=== PATIENT | female | born 1995 | race Caucasian/White ===

== ENCOUNTER 2024-12-28 20:48 | Emergency (ER) | payer OTHER, SELFPAY ==
[2024-12-28 20:51] VITALS: BMI 23.5
[2024-12-28 21:12] VITALS: BP 129/82; PULSE 77; RESP 20; TEMP 36.8; O2SAT 100
--- NOTE | 2024-12-28 21:18 | EDNOTE_ITS ---
Neuro Symptoms Deficit-RME/HPI General Chief Complaint: Eye Problems Stated Complaint: LEFT ARM AND FACE NUMB AND LEFT EYE BLURRY Time Seen by Provider: 12/28/24 21:23 Arrival date/time: 12/28/24 20:48 RME / HPI RME / HPI Narrative: See MDM for Dr. Lugo's HPI Documentation. Related Data Previous Rx's ?Medication ?Instructions ?Recorded ondansetron 4 mg disintegrating 4 mg PO TID PRN nausea and 12/28/24 tablet vomiting 30 days #10 tabs sumatriptan succinate 25 mg tablet 25 mg PO Q2H PRN mi graine headache 12/28/24 (Imitrex) #10 tabs Allergies Allergy/AdvReac Type Severity Reaction Status Date / Time No Known Allergies Allergy Verified 12/28/24 20:50 Past Medical History Social History SMOKING STATUS: Never smoker ED Exam Narrative Physical exam: See [facility] for Dr. Lugo's Physical Exam Documentation. Course Quality Measures none Orders Category Date Time Status EKG (ED ONLY) *Do not use* NOW Care 12/28/24 21:[address] head/brain wo con Stat Exams 12/28/24 21:24 Completed EKG (ED Only) Stat Exams 12/28/24 21:24 Draft XR chest 1V portable Stat Exams 12/28/24 21:24 Completed BNP [B-Type Natriuretic Peptide] Stat Lab 12/28/24 21:53 Completed Bilirubin,Direct Stat Lab 12/28/24 21:53 Completed CBC Stat Lab 12/28/24 21:53 Completed CMP [Comprehensive Metabolic Panel] Stat Lab 12/28/24 21:53 Completed D-Dimer Stat Lab 12/28/24 21:53 Completed Drug Screen,Urine Stat Lab 12/28/24 21:46 Completed HCG,Qualitative Serum Stat Lab 12/28/24 21:53 Completed Magnesium Stat Lab 12/28/24 21:53 Completed TSH [Thyroid Stimulating Hormone] Stat Lab 12/28/24 21:53 Completed Troponin I Stat Lab 12/28/24 21:53 Completed UA, C/S IF [Urinalysis, C/S if Indicated] Stat Lab 12/28/24 21:46 Completed Vital Signs Vital signs: Vital Signs Temperature 98.3 F 12/28/24 21:12 Pulse Rate 77 12/28/24 21:12 Respiratory Rate 20 12/28/24 21:12 Blood Pressure 129/82 12/28/24 21:12 Pulse Oximetry (%) 100 12/28/24 21:12 Oxygen Delivery Method Room Air 12/28/24 21:12 Neuro Symptoms / Deficit MDM Narrative MDM Narrative:: This section includes all my notes and documentations, including HPI, PE, and ED course. Pantera Lugo MD HPI: 29 y/o female presents with 3 weeks of left-sided numbness, headache, and blurred vision to the left eye. And occasional chest tightness and palpitations. No other complaints. ROS: All negative except as documented in HPI. Physical Exam: General: Alert and oriented. No acute distress. Eyes: Conjunctivae and lids clear. EOMI. PERRL. ENT: No nasal congestion. Pharynx normal. Tympanic membrane normal bilaterally. Neck: Supple. No carotid bruit. No JVD. Heart: RRR. Lungs: No respiratory distress. Good air movement. No rhonchi, wheezing, rales. Abdomen: Soft and nontender. Legs: No clubbing, cyanosis, edema. Skin: Warm and dry. Neuro: Alert and oriented X 3. Cranial Nerves II-XII grossly intact. No peripheral motor deficits. I reviewed all diagnostic test results: My interpretation of the EKG is sinus rhythm with no acute ST?T changes. My interpretation of the chest x-ray is: NAD. My review of the Head/Brain CT report is: NAD. Blood tests and urine tests unremarkable. At this point, diagnoses include: Migraine headache Palpitations Recommended outpatient care. Based on my best medical judgment, made decision no further evaluation or t reatment indicated at this time. Patient understands and agrees to the discharge instructions customized and printed, see below. Discharge Instructions from Dr. Lugo: --After evaluation, your symptoms are due to migraine headache.? Fortunately, there is no life-threatening condition.? Such as stroke or brain tumor or heart attack. --When you get home, try to get some rest in the dark.? This can be the best treatment for migraine headache. --Try to eat regular nutritious meals, maintain good hydration, decrease stress, and get regular physical exercise.? Increase oral fluid and maintain clear urine.? If dark or yellow, increase oral fluid. --Take Zofran for nausea.? With migraines, controlling your nausea as soon as possible can help. --Take Imitrex as needed.? This works better if you take it at the onset of a migraine headache. --See a private doctor of your choice on 12/31/2024 for recheck and further care. Ask to review all test results and official radiology reports, to make sure you receive all necessary follow-ups and monitoring. Ask to consider a referral to see a neurologist and MRI brain imaging. To make sure there is no serious underlying heart condition, ask to help you get more tests for your heart that cannot be done here in the ER. Such as Holter Monitor (cardiac monitoring at home from a day to even a month), heart stress test (on treadmill or with medication), echocardiogram (imaging of your heart structures), heart catherization (checking for blockages in your heart arteries), and a referral to see a [employer]. --Seek immediate medical care with worsening or with any concerns.? Pantera Lugo MD Patient data External records reviewed:: [facility] previous records (No prior ED records available for review) Clinical information provided by:: patient Social determinants that could affect healthcare access:: none Patient has the following chronic illnesses:: None reported How is presenting disease/condition affected by chronic disease/condition?: no chronic disease Evaluation data The following diagnostics were reviewed and interpreted by me:: lab results, radiology exam(s) and EKG tracing(s) Lab and/or radiology exams considered but not ordered:: None Interpretation Summary: I reviewed all diagnostic test results: My interpretation of the EKG is sinus rhythm with no acute ST?T changes. My interpretation of the chest x-ray is: NAD. My review of the Head/Brain CT report is: NAD. Blood tests and urine tests unremarkable. Medications / Prescriptions Medications or Prescriptions considered but not ordered:: None Medication administrations:: None Consultations Consultation(s) initiated? (list below): No Diagnosis Neuro Differential Diagnosis: carpal tunnel syndrome, peripheral neuropathy, cerebrovascular accident and transient cerebral ischemia Most likely diagnosis given after review of the tests above:: Migraine headache Palpitations Admission Indicated Admission indicated?: not indicated Explain why admission is indicated or not indicated:: With no condition needing emergent intervention, there was no indication for admission. Admission Request Was there a request for admission?: No Disposition Plan Disposition Plan: Discharge Discharge Attestation Discharge Attestation: The patient and all family members were given an opportunity to ask questions and understood the discharge instructions. Discharge instructions specifically effects, indications for sooner follow up or return to the emergency department, and the expected course of current diagnosis. Patient condition: Stable Discharge Plan Plan Patient Disposition: HOME (Self Care) Prescriptions/Referrals Prescriptions/Med Rec: New sumatriptan succinate [Imitrex] 25 mg tablet 25 mg PO Q2H PRN (Reason: migraine headache) Qty: 10 0RF Rx Instructions: do not exceed 8 doses per 24 hrs ondansetron 4 mg tablet,disintegrating 4 mg PO TID PRN (Reason: nausea and vomiting) 30 Days Qty: 10 0RF Problem List Clinical Impression: Migraine headache, Palpitations Patient/Caregiver Discharge Instructions Discharge Activity: activity as tolerated Education Materials: ED Headache, Migraine, Classic, ED Palpitations Additional Instructions: Discharge Instructions from Dr. Lugo: --After evaluation, your symptoms are due to migraine headache.? Fortunately, there is no life-threatening condition.? Such as stroke or brain tumor or heart attack. --When you get home, try to get some rest in the dark.? This can be the best treatment for migraine headache. --Try to eat regular nutritious meals, maintain good hydration, decrease stress, and get regular physical exercise.? Increase oral fluid and maintain clear urine.? If dark or yellow, increase oral fluid. --Take Zofran for nausea.? With migraines, controlling your nausea as soon as possible can help. --Take Imitrex as needed.? This works better if you take it at the onset of a migraine headache. --See a private doctor of your choice on 12/31/2024 for recheck and further care. Ask to review all test results and official radiology reports, to make sure you receive all necessary follow-ups and monitoring. Ask to consider a referral to see a neurologist and MRI brain imaging. To make sure there is no serious underlying heart condition, ask to help you get more tests for your heart that cannot be done here in the ER. Such as Holter Monitor (cardiac monitoring at home from a day to even a month), heart stress test (on treadmill or with medication), echocardiogram (imaging of your heart structures), heart catherization (checking for blockages in your heart arteries), and a referral to see a [employer]. --Seek immediate medical care with worsening or with any concerns.? Print Language: Romansh Stand Alone Forms: Amelia Award Info., Work/School Release, Patient Portal Info Letter
--- NOTE | 2024-12-28 21:24 | EKG_ITS ---
[facility] Test Date: 2024-12-28 Pat Name: TRAVIS PANDA Department: Room: - Gender: Female Outside Sales Manager: : 1995 Requested By: Pantera Mcmanus Order Number: [id number] Reading MD: Pantera Mcmanus Measurements Intervals [place] Rate: 66 P: 67 [place]: 199 QRS: 54 QRSD: 77 T: 41 QT: 365 QTc: 383 Interpretive Statements SINUS RHYTHM POSSIBLE LEFT ATRIAL ENLARGEMENT [-0.1mV P-WAVE IN V1/V2] No previous ECG available for comparison /store/S0/[id number].pdf
--- NOTE | 2024-12-28 21:24 | XR_ITS ---
EXAMINATION: PA chest single view TECHNIQUE: Upright PA chest single Date and time: December 28, 2024 2138 hours INDICATIONS: Shortness of breath chest pain left arm numbness beginning 3 weeks ago FINDINGS: Normal heart size Lungs are clear. The osseous structures are intact IMPRESSION: No active disease
--- NOTE | 2024-12-28 21:24 | XR_ITS ---
Examination: CT brain head without contrast. 2-D sagittal coronal reconstructions Date and time of exam: December 28, 2024, 2135 hours INDICATIONS: Onset left arm and face numbness left eye blurred vision today CTDI: vol (mGy): 45.7 DLP: (mGycm): 889 Technique: Multiple CT axial sections of the brain have been obtained, 5 mm slice thickness. Contrast has not been administered. 2-D sagittal, coronal reconstructions have been obtained Low dose protocols were performed. One or more of the following dose reduction techniques were used; automated exposure control, adjustment of the mA and/or KV according to patient size, use of iterative reconstruction technique. Findings: No significant ventricular enlargement. Intra-axial or extra-axial hemorrhage density is not seen. No mass effect or midline shift Basal cisterns are not remarkable. Fourth ventricle is midline. Cranial vault intact. Impression: Negative for acute hemorrhage, mass effect or midline shift If symptoms persist, consider brain MRI follow-up to assess for demyelinating disease, acute ischemic change
[2024-12-28 22:08] LABS: Collection Type, Urine Clean Catch; WBC,Urine 0 /hpf (0-5)
[2024-12-28 22:42] LABS: B-Type Natriuretic Peptide < 20 pg/mL (0-100); HCG,Qualitative Serum Negative
[2024-12-28 22:45] LABS: Alanine Aminotransferase 10 U/L (10-49); Albumin, Serum 4.8 gm/dL (3.5-5.0); Albumin/Globulin Ratio 1.8 (1.2-2.2); Alkaline Phosphatase 64 U/L (46-116); Anion Gap 12 (7-16); Aspartate Amino Transferase 16 U/L (0-34); BUN/Creatinine Ratio 10 Ratio (12-20); Bilirubin,Direct 0.1 mg/dL (0.0-0.3); Bilirubin,Total 0.4 mg/dL (0.3-1.2); Blood Urea Nitrogen 9 mg/dL (9-23); Calcium 9.4 mg/dL (8.3-10.6); Calcium (Corrected) 9.4 mg/dL (8.5-10.1); Carbon Dioxide 24.3 mMol/L (20.0-31.0); Chloride 106 mMol/L (98-107); Creatinine (Component) 0.9 mg/dL (0.6-1.3); Estimated Creatinine Clearance 88.9 mL/min (>60); Globulin 2.6 gm/dL (2.3-3.5); Glucose 96 mg/dL (74-106); Magnesium 2.1 mg/dL (1.6-2.6); Osmolality,Calculated 281 (275-295); Potassium 3.8 mMol/L (3.4-5.1); Sodium 142 mMol/L (136-145); Thyroid Stimulating Hormone 1.67 uIU/mL (0.55-4.78); Total Protein 7.4 gm/dL (5.7-8.2); Troponin I < 0.002 ng/mL (0.0-0.045); eGFR > 60 See Note
[2024-12-28 22:45] LABS: Bacteria,Urine Rare; Bilirubin,Urine Negative (Negative); Blood,Urine Trace (Negative); Clarity,Urine Clear (Clear/Hazy); Color,Urine Colorless (Lt Yel-Yel); Culture Indicated,Urine Not Indicated; Glucose, Urine Negative (Negative); Ketones,Urine Negative (Negative); Leukocyte Esterase,Urine Negative (Negative); Nitrite,Urine Negative (Negative); PH,Urine 6.5 (5.0-7.0); Protein,Urine Negative (Neg - Trace); RBC,Urine 1 /hpf (0-3); Specific Gravity,Urine 1.005 (1.001-1.035); Squamous Epithelial Cell,Urine 2 /hpf (0-5); Urobilinogen,Urine Negative mg/dL (0.0-1.0)
[2024-12-28 22:48] LABS: Amphetamine/Methamp Scrn,U Negative (Negative); Barbiturate Screen,Urine Negative (Negative); Benzodiazepines Screen,Urine Negative (Negative); Benzoylecgonine Screen, Ur Negative (Negative); Fentanyl Screen,Urine Negative (Negative); Opiate Screen,Urine Negative (Negative); THC Screen,Urine Negative (Negative)
[2024-12-28 23:16] LABS: D-Dimer < 250 ng/mL (<600)
[2024-12-28 23:59] LABS: Basophils # (Auto) 0.0 Thou/mm3 (0.0-0.2); Basophils % (Auto) 1 % (0-2.5); Eosinophils # (Auto) 0.2 Thou/mm3 (0.0-0.5); Eosinophils % (Auto) 3 % (0-10); Hematocrit 37.8 % (36.0-46.0); Hemoglobin 13.4 g/dL (12.0-16.0); Immature Granulocytes Auto 0.01 Thou/mm3 (0.00-0.00); Lymphocytes # (Auto) 2.6 Thou/mm3 (1.0-4.8); Lymphocytes % (Auto) 42 % (10-50); Mean Corpuscular HGB Conc 35.4 g/dl (31.0-37.0); Mean Corpuscular Hemoglobin 30.8 pg (25.0-35.0); Mean Corpuscular Volume 87 fL (80-100); Monocytes # (Auto) 0.4 Thou/mm3 (0.0-0.8); Monocytes % (Auto) 6 % (0-12); Neutrophils # (Auto) 3.0 Thou/mm3 (1.8-7.7); Neutrophils % (Auto) 49 % (37-80); Nucleated Red Blood Cell # 0.00 Thou/mm3 (0.00-0.00); Nucleated Red Blood Cell % 0 /100 WBC (0); Platelet Count 186 Thou/mm3 (140-440); RDW Standard Deviation 37.2 fL (36.4-46.3); Red Blood Count 4.35 Miln/mm3 (4.00-5.20); White Blood Count 6.1 Thou/mm3 (3.6-11.0)
== END 2024-12-28 23:25 | disposition home or self-care (01) ==
PROVIDERS: Emergency Provider Emergency Medicine
DX: G43.909 Migraine, unspecified, not intractable, without status migrainosus (principal)
CPT/HCPCS: 36415; 70450; 71045; 80053; 80307; 81001; 82248; 83735; 83880; 84443; 84484; 84703; 85025; 85379; 93005; 99283

== ENCOUNTER 2025-02-09 04:53 | Emergency (ER) | payer OTHER, SELFPAY ==
[2025-02-09 04:55] VITALS: BMI 23.5
[2025-02-09 05:05] VITALS: BP 105/62; PULSE 113; RESP 17; TEMP 36.7; O2SAT 96
--- NOTE | 2025-02-09 05:27 | PD.EDRME ---
Rapid Medical Screening Exam [facility] Arrival date/time: 02/09/25 04:53 29F with history of migraines presents to ED with 2 days of fevers/chills, GUZMAN, N/V, ab pain/cramping, and non-bloody diarrhea. Patient denies cough and sore throat. This GUZMAN feels different than her typical migraines. Chief Complaint: Flu Like Symptoms Vital signs: Vital Signs Temperature 98.1 F 02/09/25 05:05 Pulse Rate 113 H 02/09/25 05:05 Respiratory Rate 17 02/09/25 05:05 Blood Pressure 105/62 02/09/25 05:05 Pulse Oximetry (%) 96 02/09/25 05:05 Oxygen Delivery Method Room Air 02/09/25 05:05 Exam: Tired. Clinical Impression: URI vs gastroenteritis vs food poisoning vs viral syndrome
[2025-02-09] MEDS: ONDANSETRON ODT 4 MG TABRAP PO (05:35)
[2025-02-09] MEDS: DICYCLOMINE 10 MG CAPSULE PO (05:35)
[2025-02-09 05:46] LABS: Collection Type, Urine Clean Catch
[2025-02-09 05:51] LABS: HCG Qualitative,Urine Negative
[2025-02-09 05:53] LABS: Bacteria,Urine Rare; Bilirubin,Urine Negative (Negative); Blood,Urine Negative (Negative); Clarity,Urine Turbid (Clear/Hazy); Color,Urine Yellow (Lt Yel-Yel); Culture Indicated,Urine Contaminated; Glucose, Urine Negative (Negative); Ketones,Urine Negative (Negative); Leukocyte Esterase,Urine Positive (Negative); Nitrite,Urine Negative (Negative); PH,Urine 7.5 (5.0-7.0); Protein,Urine 1+ (Neg - Trace); RBC,Urine 10 /hpf (0-3); Specific Gravity,Urine 1.031 (1.001-1.035); Squamous Epithelial Cell,Urine 27 /hpf (0-5); Urobilinogen,Urine Negative mg/dL (0.0-1.0); WBC,Urine 22 /hpf (0-5)
[2025-02-09 06:01] LABS: Basophils # (Auto) 0.0 Thou/mm3 (0.0-0.2); Basophils % (Auto) 0 % (0-2.5); Eosinophils # (Auto) 0.0 Thou/mm3 (0.0-0.5); Eosinophils % (Auto) 0 % (0-10); Hematocrit 42.0 % (36.0-46.0); Hemoglobin 14.2 g/dL (12.0-16.0); Immature Granulocytes Auto 0.01 Thou/mm3 (0.00-0.00); Lymphocytes # (Auto) 0.3 Thou/mm3 (1.0-4.8); Lymphocytes % (Auto) 4 % (10-50); Mean Corpuscular HGB Conc 33.8 g/dl (31.0-37.0); Mean Corpuscular Hemoglobin 29.8 pg (25.0-35.0); Mean Corpuscular Volume 88 fL (80-100); Monocytes # (Auto) 0.2 Thou/mm3 (0.0-0.8); Monocytes % (Auto) 3 % (0-12); Neutrophils # (Auto) 6.2 Thou/mm3 (1.8-7.7); Neutrophils % (Auto) 92 % (37-80); Nucleated Red Blood Cell # 0.00 Thou/mm3 (0.00-0.00); Nucleated Red Blood Cell % 0 /100 WBC (0); Platelet Count 151 Thou/mm3 (140-440); RDW Standard Deviation 38.6 fL (36.4-46.3); Red Blood Count 4.77 Miln/mm3 (4.00-5.20); White Blood Count 6.7 Thou/mm3 (3.6-11.0)
[2025-02-09 06:05] LABS: COVID-19 Antigen (In-House) Negative (Negative); Influenza A Ag Negative; Influenza B Ag Negative
[2025-02-09 06:27] LABS: Alanine Aminotransferase 27 U/L (10-49); Albumin, Serum 4.7 gm/dL (3.5-5.0); Albumin/Globulin Ratio 1.8 (1.2-2.2); Alkaline Phosphatase 54 U/L (46-116); Anion Gap 9 (7-16); Aspartate Amino Transferase 23 U/L (0-34); BUN/Creatinine Ratio 18 Ratio (12-20); Bilirubin,Total 1.0 mg/dL (0.3-1.2); Blood Urea Nitrogen 14 mg/dL (9-23); Calcium 8.9 mg/dL (8.3-10.6); Calcium (Corrected) 8.9 mg/dL (8.5-10.1); Carbon Dioxide 27.6 mMol/L (20.0-31.0); Chloride 103 mMol/L (98-107); Creatinine (Component) 0.8 mg/dL (0.6-1.3); Estimated Creatinine Clearance 100.0 mL/min (>60); Globulin 2.6 gm/dL (2.3-3.5); Glucose 123 mg/dL (74-106); Lipase 28 U/L (12-53); Osmolality,Calculated 280 (275-295); Potassium 3.6 mMol/L (3.4-5.1); Sodium 140 mMol/L (136-145); Total Protein 7.3 gm/dL (5.7-8.2); eGFR > 60 See Note
[2025-02-09 07:19] VITALS: BP 94/62; PULSE 109; RESP 18; TEMP 38.3; O2SAT 96
[2025-02-09 07:25] LABS: Amphetamine/Methamp Scrn,U Negative (Negative); Barbiturate Screen,Urine Negative (Negative); Benzodiazepines Screen,Urine Negative (Negative); Benzoylecgonine Screen, Ur Negative (Negative); Fentanyl Screen,Urine Negative (Negative); Opiate Screen,Urine Negative (Negative); THC Screen,Urine Negative (Negative)
--- NOTE | 2025-02-09 07:29 | PD.EDURI ---
Upper Respiratory Inf. RME/HPI General Chief Complaint: Flu Like Symptoms Stated Complaint: GUZMAN,BODYACHES,VOMITING Time Seen by Provider: 02/09/25 06:06 Arrival date/time: 02/09/25 04:53 RME / HPI RME / HPI Narrative: 02/09/25 04:53 29F with history of migraines presents to ED with 2 days of fevers/chills, GUZMAN, N/V, ab pain/cramping, and non-bloody diarrhea. Patient denies cough and sore throat. This GUZMAN feels different than her typical migraines. Exam: Tired. Impression: URI vs gastroenteritis vs food poisoning vs viral syndrome Related Data Previous Rx's ?Medication ?Instructions ?Recorded sumatriptan succinate 25 mg tablet 25 mg PO Q2H PRN migraine headache 12/28/24 (Imitrex) #10 tabs Allergies Allergy/AdvReac Type Severity Reaction Status Date / Time No Known Allergies Allergy Verified 02/09/25 04:54 Course Orders Category Date Time Status CBC Stat Lab 02/09/25 05:36 Completed CMP [Comprehensive Metabolic Panel] Stat Lab 02/09/25 05:36 Completed COVID-19 Antigen (In-House) Stat Lab 02/09/25 05:28 Completed Drug Screen,Urine Stat Lab 02/09/25 05:37 Completed HCG Qualitative,Urine Stat Lab 02/09/25 05:37 Completed Influenza A & B Rapid Panel Stat Lab 02/09/25 05:28 Completed Lipase Stat Lab 02/09/25 05:36 Completed Urinalysis, C/S if Indicated Stat Lab 02/09/25 05:37 Completed Dicyclomine [Bentyl] Med 02/09/25 05:28 Discontinued 10 mg PO X1 ONE Ondansetron Odt [Zofran Odt] Med 02/09/25 05:28 Discontinued 4 mg PO X1 ONE Vital Signs Vital signs: Vital Signs Temperature 98.1 F 02/09/25 05:05 Pulse Rate 113 H 02/09/25 05:05 Respiratory Rate 17 02/09/25 05:05 Blood Pressure 105/62 02/09/25 05:05 Pulse Oximetry (%) 96 02/09/25 05:05 Oxygen Delivery Method Room Air 02/09/25 05:05 Upper Respiratory Infection Medications / Prescriptions Medication administrations:: Medication Administration History Discontinued Medications Dicyclomine HCl (Dicyclomine 10 Mg Capsule) 10 mg PO X1 ONE Stop: 02/09/25 05:29 Last Admin: 02/09/25 05:35 Dose: 10 mg Documented By: DORIS Ondansetron HCl (Ondansetron Odt 4 Mg Tabrap) 4 mg PO X1 ONE; Protocol Stop: 02/09/25 05:29 Last Admin: 02/09/25 05:35 Dose: 4 mg Documented By: DORIS Discharge Plan Prescriptions/Referrals Prescriptions/Med Rec: No Action sumatriptan succinate [Imitrex] 25 mg tablet 25 mg PO Q2H PRN (Reason: migraine headache) Qty: 10 0RF Rx Instructions: do not exceed 8 doses per 24 hrs Referrals: No Primary/Family,Physician [Primary Care Provider] - In 1 week Patient/Caregiver Discharge Instructions Print Language: Danish
--- NOTE | 2025-02-09 07:30 | XR_ITS ---
Examination: CT abdomen and pelvis without contrast. Coronal 3-D reconstructions. Sagittal 2-D reconstructions. Date and time of exam: February 09, 2025, 0824 hours INDICATIONS: Microscopic hematuria today with nausea vomiting diarrhea and chills CTDI: vol (mGy): 8.21 DLP: (mGycm): 394 Technique: Axial images of the abdomen have been obtained, 3 mm slice thickness Intravenous contrast material has not been administered. Low dose protocols were performed. One or more of the following dose reduction techniques were used; automated exposure control, adjustment of the mA and/or KV according to patient size, use of iterative reconstruction technique. Findings: No focal liver or splenic lesions No gallstones No pancreatic mass No renal or ureteral calculi, no hydronephrosis Aorta normal size No bowel obstruction Normal appendix No diverticulitis There is mild free fluid in the pelvis 20 mm left ovarian follicular cyst No bladder mass or bladder calculi Osseous structures are intact IMPRESSION: Negative for gallstones No renal or ureteral calculi, no hydronephrosis Normal appendix No bowel obstruction There is mild free fluid in the pelvis, recommend pelvic sonography follow-up
[2025-02-09 07:52] VITALS: BP 109/58; PULSE 91; RESP 18; O2SAT 98
[2025-02-09 08:13] VITALS: BP 108/68; PULSE 97; RESP 17; TEMP 37.1
[2025-02-09] MEDS: HYDROcodone/APAP 5/325 TABLET 1 TAB PO (08:14)
[2025-02-09] MEDS: IBUPROFEN TAB 400 MG TABLET 800 MG PO (08:14)
[2025-02-09] MEDS: SODIUM CHLORIDE 0.9% 1000 ML 1,000 ML 999 ML IV (08:15)
[2025-02-09] MEDS: cefTRIAXone/D5w 1gm IV premix 1 GM/50 ML BAG IV (08:38)
--- NOTE | 2025-02-09 09:43 | EDNOTE_ITS ---
ED Abdominal Pain RME/HPI General Chief Complaint: Flu Like Symptoms Stated complaint: GUZMAN,BODYACHES,VOMITING Time seen by provider: 02/09/25 06:06 Arrival date/time: 02/09/25 04:53 Limitations: no limitations RME / HPI RME / HPI narrative: 02/09/25 04:53 29F with history of migraines presents to ED with 2 days of fevers/chills, GUZMAN, N/V, ab pain/cramping, and non-bloody diarrhea. Patient denies cough and sore th roat. This GUZMAN feels different than her typical migraines. DR. ROSARIO MAIN ED EVALUATION: 29-year-old female with past medical history of migraines presents to the Emer[facility] Department with complaint of nausea, vomiting, diarrhea, and abdominal pain for the past 2 days. She reports multiple episodes of vomiting and loose stools. She feels dehydrated. She has sick contacts at home with the same symptoms. She denies fever, chest pain, shortness of breath, blood in stool, or recent travel. Related Data Previous Rx's ?Medication ?Instructions ?Recorded sumatriptan succinate 25 mg tablet 25 mg PO Q2H PRN mi graine headache 12/28/24 (Imitrex) #10 tabs dicyclomine 20 mg tablet 20 mg PO QID PRN abdominal p ain 02/09/25 #20 tabs ondansetron HCl 4 mg tablet 4 mg PO TID PRN nausea and 02/09/25 vomiting 5 days #20 tabs Allergies Allergy/AdvReac Type Severity Reaction Status Date / Time No Known Allergies Allergy Verified 02/09/25 04:54 Review of Systems Review of Systems Systems Reviewed: All systems reviewed, normal except as documented Past Medical History Past Medical History PSYCHO/SOCIAL: Positive Anxiety Social History SMOKING STATUS: Never smoker SUBSTANCE USE: does not use ALCOHOL: Never ED Exam General Limitations: Present no limitations General appearance: Present alert and in no apparent distress Head Head exam: Present atraumatic, normocephalic and normal inspection Eye Eye exam: Present normal appearance, PERRL and EOMI ENT ENT exam: Present normal exam, normal oropharynx and mucous membranes dry Neck Neck exam: Present normal inspection, full ROM and trachea midline Chest Chest inspection: Present normal inspection and symmetric chest wall rise Respiratory Respiratory exam: Present normal lung sounds bilaterally Cardiovascular Cardiovascular exam: Present regular rate, normal rhythm and normal heart sounds Abdominal Exam Abdominal exam: Present soft and normal bowel sounds Extremities Exam Extremities exam: Present normal inspection and full ROM Back Exam Back exam: Present normal inspection and full ROM Neurological Exam Neurological exam: Present alert, oriented X3 and CN II-XII intact Psychiatric Psychiatric exam: Present normal affect and normal mood Skin Skin exam: Present warm, dry, intact and normal color Course Quality Measures none Orders Category Date Time Status CT abdomen pelvis wo con Stat Exams 02/09/25 07:30 Completed CBC Stat Lab 02/09/25 05:36 Completed CMP [Comprehensive Metabolic Panel] Stat Lab 02/09/25 05:36 Completed COVID-19 Antigen (In-House) Stat Lab 02/09/25 05:28 Completed Drug Screen,Urine Stat Lab 02/09/25 05:37 Completed HCG Qualitative,Urine Stat Lab 02/09/25 05:37 Completed Influenza A & B Rapid Panel Stat Lab 02/09/25 05:28 Completed Lipase Stat Lab 02/09/25 05:36 Completed Urinalysis, C/S if Indicated Stat Lab 02/09/25 05:37 Completed Dicyclomine [Bentyl] Med 02/09/25 05:28 Discontinued 10 mg PO X1 ONE HYDROcodone*/APAP 5/325 [Mosier 5/325] Med 02/09/25 07:29 Discontinued 1 tab PO X1 ONE Ibuprofen Tab [Motrin Tab] Med 02/09/25 07:29 Discontinued 800 mg PO X1 ONE Ondansetron Odt [Zofran Odt] Med 02/09/25 05:28 Discontinued 4 mg PO X1 ONE Sodium Chloride 0.9% 1000 ml [Ns] 1,000 ml Med 02/09/25 07:29 Discontinued IV 999 mls/hr cefTRIAXone/D5w 1gm IV premix [Rocephin/D5w 1gm IV Med 02/09/25 07:29 Discontinued premix] 1 gm in 50 ml IV X1 Vital Signs Vital signs: Vital Signs Temperature 98.1 F 02/09/25 05:05 Pulse Rate 113 H 02/09/25 05:05 Respiratory Rate 17 02/09/25 05:05 Blood Pressure 105/62 02/09/25 05:05 Pulse Oximetry (%) 96 02/09/25 05:05 Oxygen Delivery Method Room Air 02/09/25 05:05 Abdominal Pain MDM MDM Narrative MDM Narrative:: I, Karly Leon, am scribing for and in the presence of Dr. Rosario. 29-year-old female with nausea, vomiting, diarrhea, and abdominal pain for 2 days with sick contacts. Exam normal. Differential diagnoses include viral gastroenteritis, dehydration, and foodborne illness. Blood work was negative, no abnormalities. CT abdomen and pelvis was negative, no acute pathology. Plan includes Zofran for nausea and Bentyl for abdominal cramping. Patient improved after treatment and will be discharged home. Patient data External records reviewed:: [facility] previous records Clinical information provided by:: patient Social determinants that could affect healthcare access:: none Patient has the following chronic illnesses:: migraines How is presenting disease/condition affected by chronic disease/condition?: uneffected by Evaluation data The following diagnostics were reviewed and interpreted by me:: lab results and radiology exam(s) Lab and/or radiology exams considered but not ordered:: none Interpretation Summary: See MDM narrative above. RADIOLOGY Procedure(s): CT abdomen pelvis [facility] Accession Number(s): [id number] cc: Cate Lee PA-C; Rayo Sol MD; NO PRIMARY/FAMILY,PHYSICIAN~ Examination: CT abdomen and pelvis without contrast. Coronal 3-D reconstructions. Sagittal 2-D reconstructions. Date and time of exam: February 09, 2025, 0824 hours INDICATIONS: Microscopic hematuria today with nausea vomiting diarrhea and chills CTDI: vol (mGy): 8.21 DLP: (mGycm): 394 Technique: Axial images of the abdomen have been obtained, 3 mm slice thickness Intravenous contrast material has not been administered. Low dose protocols were performed. One or more of the following dose reduction techniques were used; automated exposure control, adjustment of the mA and/or KV according to patient size, use of iterative reconstruction technique. Findings: No focal liver or splenic lesions No gallstones No pancreatic mass No renal or ureteral calculi, no hydronephrosis Aorta normal size No bowel obstruction Normal appendix No diverticulitis There is mild free fluid in the pelvis 20 mm left ovarian follicular cyst No bladder mass or bladder calculi Osseous structures are intact IMPRESSION: Negative for gallstones No renal or ureteral calculi, no hydronephrosis Normal appendix No bowel obstruction There is mild free fluid in the pelvis, recommend pelvic sonography follow-up Dictated By: Rayo Sol MD Medications / Prescriptions Medications or Prescriptions considered but not ordered:: none Medication administrations:: Medication Administration History Discontinued Medications Hydrocodone Bitart/Acetaminophen (Hydrocodone/Apap 5/325 Tablet) 1 tab PO X1 ONE Stop: 02/09/25 07:30 Last Admin: 02/09/25 08:14 Dose: 1 tab Documented By: EF Dicyclomine HCl (Dicyclomine 10 Mg Capsule) 10 mg PO X1 ONE Stop: 02/09/25 05:29 Last Admin: 02/09/25 05:35 Dose: 10 mg Documented By: AC Sodium Chloride (Ns) 1,000 mls @ 999 mls/hr IV .Q1H1M ONE Stop: 02/09/25 08:29 Last Infusion: 02/09/25 09:16 Dose: Infused Documented By: Admin: 02/09/25 08:15 Dose: 999 mls/hr Documented By: EF Ceftriaxone Sodium/Dextrose (Rocephin/D5w 1gm Iv Premix) 1 gm in 50 mls @ 100 mls/hr IV X1 ONE Stop: 02/09/25 07:58 Last Infusion: 02/09/25 09:08 Dose: Infused Documented By: Admin: 02/09/25 08:38 Dose: 100 mls/hr Documented By: EF Ibuprofen (Ibuprofen Tab 400 Mg Tablet) 800 mg PO X1 ONE Stop: 02/09/25 07:30 Last Admin: 02/09/25 08:14 Dose: 800 mg Documented By: EF Ondansetron HCl (Ondansetron Odt 4 Mg Tabrap) 4 mg PO X1 ONE; Protocol Stop: 02/09/25 05:29 Last Admin: 02/09/25 05:35 Dose: 4 mg Documented By: AC see above Consultations Consultation(s) initiated? (list below): No Diagnosis Differential diagnosis abdominal pain: other (viral gastroenteritis, dehydration, and foodborne illness) Most likely diagnosis given after review of the tests above:: Viral infection Gastroenteritis and colitis, viral Acute dehydration Admission Indicated Admission indicated?: not indicated Admission Request Was there a request for admission?: No Disposition Plan Disposition Plan: Discharge Discharge Attestation Discharge Attestation: The patient and all family members were given an opportunity to ask questions and understood the discharge instructions. Discharge instructions specifically effects, indications for sooner follow up or return to the emergency department, and the expected course of current diagnosis. Patient condition: Stable Discharge Plan Plan Patient Disposition: HOME (Self Care) Patient condition on transfer: Stable Prescriptions/Referrals Prescriptions/Med Rec: New dicyclomine 20 mg tablet 20 mg PO QID PRN (Reason: abdominal pain) Qty: 20 0RF ondansetron HCl 4 mg tablet 4 mg PO TID PRN (Reason: nausea and vomiting) 5 Days Qty: 20 0RF No Action sumatriptan succinate [Imitrex] 25 mg tablet 25 mg PO Q2H PRN (Reason: migraine headache) Qty: 10 0RF Rx Instructions: do not exceed 8 doses per 24 hrs Referrals: No Primary/Family,Physician [Primary Care Provider] - In 1 week Problem List Clinical Impression: Viral infection, Gastroenteritis and colitis, viral, Acute dehydration Patient/Caregiver Discharge Instructions Education Materials: ED Dehydration (Adult), ED Food Poison Or Gastroenteritis, ED Gastroenteritis, Viral (Adult) Print Language: Citizen Of [place] Stand Alone Forms: Amelia Award Info., Work/School Release, Patient Portal Info Letter
[2025-02-09 10:50] VITALS: BP 98/59; PULSE 78; RESP 16; O2SAT 98
--- NOTE | 2025-02-09 11:46 | PD.EDRME ---
Rapid Medical Screening Exam RME Arrival date/time: 02/09/25 04:53 02/09/25 04:53 29F with history of migraines presents to ED with 2 days of fevers/chills, GUZMAN, N/V, ab pain/cramping, and non-bloody diarrhea. Patient denies cough and sore throat. This GUZMAN feels different than her typical migraines. 29F with history of migraines presents to ED with 2 days of fevers/chills, GUZMAN, N/V, ab pain/cramping, and non-bloody diarrhea. Patient denies cough and sore throat. This GUZMAN feels different than her typical migraines. also with flank pain and vomiting. no hx of kidney stones DR. GOETZ MAIN ED EVALUATION: 29-year-old female with past medical history of migraines presents to the Emergency Department with complaint of nausea, vomiting, diarrhea, and abdominal pain for the past 2 days. She reports multiple episodes of vomiting and loose stools. She feels dehydrated. She has sick contacts at home with the same symptoms. She denies fever, chest pain, shortness of breath, blood in stool, or recent travel. Chief Complaint: Flu Like Symptoms Time Seen by Provider: 02/09/25 06:06 Vital signs: Vital Signs Temperature 98.1 F 02/09/25 05:05 Pulse Rate 113 H 02/09/25 05:05 Respiratory Rate 17 02/09/25 05:05 Blood Pressure 105/62 02/09/25 05:05 Pulse Oximetry (%) 96 02/09/25 05:05 Oxygen Delivery Method Room Air 02/09/25 05:05 RME Narrative: 02/09/25 04:53 29F with history of migraines presents to ED with 2 days of fevers/chills, GUZMAN, N/V, ab pain/cramping, and non-bloody diarrhea. Patient denies cough and sore throat. This GUZMAN feels different than her typical migraines. DR. GOETZ MAIN ED EVALUATION: 29-year-old female with past medical history of migraines presents to the Emergency Department with complaint of nausea, vomiting, diarrhea, and abdominal pain for the past 2 days. She reports multiple episodes of vomiting and loose stools. She feels dehydrated. She has sick contacts at home with the same symptoms. She denies fever, chest pain, shortness of breath, blood in stool, or recent travel. Exam: Tired. Clinical Impression: URI vs gastroenteritis vs food poisoning vs viral syndrome
== END 2025-02-09 10:51 | disposition home or self-care (01) ==
PROVIDERS: Physician Assistant; Emergency Provider Emergency Medicine
DX: E86.0 Dehydration (principal); A08.4 Viral intestinal infection, unspecified
CPT/HCPCS: 36415; 74176; 80053; 80307; 81001; 81025; 83690; 85025; 87086; 87502; 87811; 96365; 99283; J0696; J7030; Q0162; A9270